=== PATIENT | female | born 1970 | race Caucasian/White ===

== ENCOUNTER 2016-11-13 13:24 | Emergency (ER) | payer BC, OTHER ==
[~2016-11-13 13:24] MED LIST: ALBUTEROL 0.5ML INH; ALPRAZOLAM PO; ATIVAN; BAYER CHEWABLE81 MG; BENZONATATE PO; CYMBALTA PO; IBUPROFEN800 MG PO; KEFLEX500 M2 PO; KEFLEX500 MG PO; KETOPROFEN PO; LEVAQUIN PO; LIPITOR; LORTAB 7.5-5001 TAB PO; MEDROL4 MG/DOSE- PO; METHADONE PO; MOBIC PO; PHENERGAN; PHENERGAN W/CO120 ML PO; PHENERGAN25 MG PO; PREDNISONE PO; PYRIDIUM100 MG; ROBITUSSIN A-C S5 ML PO; TORADOL10 MG PO; VITAMIN D400 UNI2; ZITHROMAX; ZOFRAN ODT4 MG PO
[2016-11-13 14:29] LABS: URINE SOURCE CLEAN CATCH
[2016-11-13 14:32] LABS: URINE APPEARANCE CLEAR; URINE BILIRUBIN NEG (NEG); URINE BLOOD NEG (NEG); URINE COLOR YELLOW; URINE GLUCOSE NEG (NORM); URINE KETONE NEG (NEG); URINE LEUKOCYTE ESTERASE NEG (NEG); URINE NITRATE NEG (NEG); URINE PROTEIN NEG (NEG); URINE SPECIFIC GRAVITY <=1.005 (1.003-1.035); URINE UROBILINOGEN 0.2 MG/DL (NORM)
[2016-11-13 14:38] LABS: MICRO INDICATED? NO
== END 2016-11-13 15:43 | disposition home or self-care (01) ==
LOC: SED 13:24
PROVIDERS: Physician Assistant
DX: M54.5 Low back pain (principal); G89.29 Other chronic pain; F41.9 Anxiety disorder, unspecified; Z98.51 Tubal ligation status; Z90.49 Acquired absence of other specified parts of digestive tract; F17.210 Nicotine dependence, cigarettes, uncomplicated
CPT/HCPCS: 81003; 96372; 99283; J1885; J2360